=== PATIENT | male | born 1950 | race Two or more races ===

== ENCOUNTER 2018-06-14 18:38 | Emergency (ER) | payer MEDICARE, MEDICAID ==
[~2018-06-14] VITALS: Ht 180.3 cm; Wt 90.3 kg
--- NOTE | 2018-06-14 18:38 | NUR ---
PT BIB FMAILY FOR DYSURIA X 10DAYS, REPORTS HEMATURIA; PT AAOX4, PT ON MONITOR, VSS, NAD NOTED, MD AT BEDSIDE FOR EVAL
--- NOTE | 2018-06-14 18:45 | NUR ---
Note val in EDM - 06/14/18 at 1908 by RHILOMEN PT BIBRA FROM [facility] FOR VOMITTING BLOOD; DRIED BLOOD ON NOSE. PT NON-VERBAL, PT AAOX0, PT OBTUNDED, PT ON MONITOR, VSS, NAD NOTED, AT BEDSIDE FOR EVAL
--- NOTE | 2018-06-14 18:50 | NUR ---
URINE COLLECTED AND SENT TO LAB
[2018-06-14 19:00] VITALS: BP 135/80
[2018-06-14 19:15] LABS: APPEARANCE,URINE Cloudy (CLEAR); BILIRUBIN,URINE Negative (NEGATIVE); BLOOD, URINE Large Ery/uL (NEGATIVE); COLOR,URINE Yellow (YELLOW); KETONES,URINE Negative (NEGATIVE); LEUKOCYTE ESTERASE ,URINE Small (NEGATIVE); NITRITE, URINE Negative (NEGATIVE); PH,URINE 6.5 (5.0-8.0); PROTEIN,URINE 100 mg/dl (NEGATIVE); UGLUCOSE Negative (NEGATIVE)
[2018-06-14 19:26] LABS: BACTERIA,URINE Few /HPF (None Seen); RBC,URINE 21-50 /HPF (0-2); SQUAMOUS EPITHELIAL CELL,UR Few /HPF (None Seen)
== END 2018-06-14 20:12 | disposition home or self-care (01) ==
LOC: ER 18:44
DX: N30.01 Acute cystitis with hematuria (principal); N40.0 Benign prostatic hyperplasia without lower urinary tract symptoms; I10 Essential (primary) hypertension; E11.9 Type 2 diabetes mellitus without complications; F17.200 Nicotine dependence, unspecified, uncomplicated
CPT/HCPCS: 76770; 81001; 87077; 87086; 87186; 99284; A4606; 81000-TC

== ENCOUNTER 2023-08-28 16:19 | Inpatient (IN) | payer MEDICARE, OTHER ==
[~2023-08-28] VITALS: Ht 182.9 cm; Wt 83.0 kg
[2023-08-28 17:21] LABS: BASOPHILS % (AUTO) 0.4 % (0.0-2.0); EOSINOPHILS # (AUTO) 0.1 K/uL (0.0-0.7); EOSINOPHILS % (AUTO) 1.2 % (0.0-6.0); HEMATOCRIT 39 % (39-51); HEMOGLOBIN 13.1 g/dL (13.5-17.5); LYMPHOCYTES # (AUTO) 2.2 K/uL (0.8-4.8); LYMPHOCYTES % (AUTO) 20.3 % (20.0-44.0); MEAN CORPUSCULAR HEMOGLOBIN 28 PG (26.0-33.0); MEAN CORPUSCULAR HGB CONC 33 g/dl (31.0-36.0); MEAN CORPUSCULAR VOLUME 84 fL (80-96); MONOCYTES # (AUTO) 1.2 K/uL (0.1-1.30); NEUTROPHILS # (AUTO) 7.3 K/uL (1.8-8.9); NEUTROPHILS % (AUTO) 67.1 % (43.0-81.0); PLATELET COUNT (AUTO) 265 K/uL (150-450); RED BLOOD CELL COUNT(AUTO) 4.68 MIL/uL (4.5-6.0); RED CELL DISTRIBUTION WIDTH 13.7 % (11.5-15.0); WHITE BLOOD COUNT (AUTO) 10.9 K/uL (4.3-11.0)
[2023-08-28 17:33] LABS: CALCIUM, SERUM 9.2 mg/dL (8.5-10.1); CARBON DIOXIDE 27 mmol/L (21-32); CHLORIDE 100 mmol/L (98-107); CREATININE 0.7 mg/dL (0.6-1.3); GLUCOSE 111 mg/dL (74-106); POTASSIUM 4.5 mmol/L (3.5-5.1); SODIUM SERUM 136 mmol/L (136-145); UREA NITROGEN, BLOOD 13 mg/dL (7-18)
[2023-08-28] MEDS ORDERED: VALS160T29 PO (17:39)
[2023-08-28] MEDS ORDERED: SITA1TAB6 PO (17:39)
[2023-08-28] MEDS ORDERED: TAMS-12 PO (17:39)
[2023-08-28] MEDS ORDERED: ROSU40TA23 PO (17:39)
[2023-08-28] MEDS ORDERED: INSU300I SQ (17:39)
[2023-08-28] MEDS ORDERED: ICOS1CAP PO (17:39)
[2023-08-28 17:43] LABS: ALANINE AMINOTRANSFERASE 24 U/L (12-78); ALBUMIN 3.5 g/dL (3.4-5.0); ALKALINE PHOSPHATASE 75 U/L (46-116); ASPARTATE AMINOTRANSFERASE 21 U/L (15-37); BILIRUBIN,DIRECT 0.2 mg/dL (0.0-0.2); BILIRUBIN,TOTAL 0.4 mg/dL (0.2-1.0); TOTAL PROTEIN, SERUM 7.9 g/dL (6.4-8.2)
[2023-08-28] MEDS: ASPIRIN 325 MG TABLET PO ONE (18:25)
[2023-08-28 18:28] LABS: NT-PRO BNP 82 pg/mL (0-125)
[2023-08-28] MEDS ORDERED: MAG HYDROX/AL HYDROX/SIMETH 30 ML UDC PO PRN (20:00)
[2023-08-28] MEDS ORDERED: DEXTROSE 50%-WATER 50 ML DISP.SYRIN IV PRN (20:00)
[2023-08-28] MEDS ORDERED: ACETAMINOPHEN 325 MG TABLET PO PRN (20:00)
[2023-08-28] MEDS ORDERED: Z GUARD REMEDY 4 OZ OINT TP PRN (20:00)
[2023-08-28] MEDS ORDERED: MAGNESIUM HYDROXIDE 30 ML UDC PO PRN (20:00)
[2023-08-28] MEDS ORDERED: ONDANSETRON HCL/PF 4 MG/2 ML VIAL IVP PRN (20:00)
[2023-08-28] MEDS ORDERED: ZOLPIDEM TARTRATE 5 MG TABLET PO PRN (20:00)
[2023-08-28 21:47] VITALS: BP 150/66; TEMP 98.2; O2SAT 93
[2023-08-28] MEDS: BLOOD SUGAR DIAGNOSTIC 1 EACH STRIP IN SCH (22:00)
[2023-08-29] VITALS (11 sets, daily range): BP systolic 106–157; BP diastolic 61–72; TEMP 97.7–98.5; O2SAT 92–98
[2023-08-29] MEDS: INSULIN REGULAR, HUMAN 100 UNIT/ML 3 ML VIAL SQ PRN (00:03)
[2023-08-29] MEDS ORDERED: PIPERACI/TAZO 3.375GM/D5W 50ML PB IV ONE ×2 (00:17→06:36)
[2023-08-29] MEDS: PIPERACILLIN /TAZOBACTAM 3.375 G in IV D5W 50 ML IV SCH (00:20)
[2023-08-29] MEDS ORDERED: VANCOMYCIN 1 GM /D5W 250 ML PB IV ONE (00:56)
[2023-08-29] MEDS: VANCOMYCIN 1.5 GM in IV D5W 500 ML IV ONE (01:03)
[2023-08-29 04:30] LABS: BASOPHILS # (AUTO) 0.1 K/uL (0.0-0.2); BASOPHILS % (AUTO) 0.7 % (0.0-2.0); EOSINOPHILS # (AUTO) 0.2 K/uL (0.0-0.7); EOSINOPHILS % (AUTO) 1.9 % (0.0-6.0); HEMATOCRIT 37 % (39-51); HEMOGLOBIN 12.1 g/dL (13.5-17.5); LYMPHOCYTES # (AUTO) 2.2 K/uL (0.8-4.8); LYMPHOCYTES % (AUTO) 27.5 % (20.0-44.0); MEAN CORPUSCULAR HEMOGLOBIN 28 PG (26.0-33.0); MEAN CORPUSCULAR HGB CONC 33 g/dl (31.0-36.0); MEAN CORPUSCULAR VOLUME 84 fL (80-96); MONOCYTES # (AUTO) 0.9 K/uL (0.1-1.30); MONOCYTES % (AUTO) 11.6 % (2.0-12.0); NEUTROPHILS # (AUTO) 4.6 K/uL (1.8-8.9); NEUTROPHILS % (AUTO) 58.3 % (43.0-81.0); PLATELET COUNT (AUTO) 244 K/uL (150-450); RED BLOOD CELL COUNT(AUTO) 4.42 MIL/uL (4.5-6.0); RED CELL DISTRIBUTION WIDTH 13.7 % (11.5-15.0); WHITE BLOOD COUNT (AUTO) 7.9 K/uL (4.3-11.0)
[2023-08-29 04:57] LABS: CALCIUM, SERUM 8.6 mg/dL (8.5-10.1); CREATININE 0.7 mg/dL (0.6-1.3); MAGNESIUM 1.9 mg/dL (1.8-2.4); PHOSPHORUS 4.6 mg/dL (2.5-4.9); POTASSIUM 3.6 mmol/L (3.5-5.1)
[2023-08-29] MEDS: LOSARTAN POTASSIUM 50 MG TABLET PO SCH (08:51)
[2023-08-29] MEDS: TAMSULOSIN 0.4 MG CAP.SR.24H PO SCH (08:51)
[2023-08-29] MEDS ORDERED: Medication Not On Formulary EA (Icosapent Ethyl (Vascepa) 2 GM) PO SCH (09:00)
[2023-08-29] MEDS: VALSARTAN 80 MG TABLET PO SCH (09:30)
[2023-08-29] MEDS: ASPIRIN 81 MG TAB.CHEW PO SCH (09:31)
[2023-08-29] MEDS: ALBUTEROL HALF STRENGTH 1.25 MG/3 ML VIAL.NEB NEB SCH (10:48)
[2023-08-29] MEDS: IPRATROPIUM NEB FS 0.5 MG/2.5 ML AMPUL.NEB NEB SCH (10:48)
[2023-08-29] MEDS: VANCOMYCIN HCL 1.25 GM in IV D5W 250 ML IV SCH (12:40)
[2023-08-29] MEDS: ATORVASTATIN 40 MG TABLET PO SCH (21:17)
[2023-08-30] VITALS (9 sets, daily range): BP systolic 111–138; BP diastolic 62–71; TEMP 98.1–98.6; O2SAT 92–98
[2023-08-30 07:50] LABS: CARBON DIOXIDE 26 mmol/L (21-32); CHLORIDE 101 mmol/L (98-107); CREATININE 0.5 mg/dL (0.6-1.3); GLUCOSE 224 mg/dL (74-106); SODIUM SERUM 136 mmol/L (136-145); UREA NITROGEN, BLOOD 9 mg/dL (7-18)
[2023-08-30] MEDS ORDERED: FLUT1DIS INH (13:22)
[2023-08-30] MEDS ORDERED: ASPI-1169 PO (13:22)
[2023-08-30] MEDS ORDERED: SULF1TAB48 PO (13:27)
[2023-08-30] MEDS: VANCOMYCIN 1 GM in IV D5W 250 ML IV SCH (13:49)
[2023-08-30] MEDS ORDERED: METOPROLOL TARTRATE INJ 5 MG/5 ML AMPUL IVP PRN (14:30)
[2023-08-30] MEDS ORDERED: IOHEXOL-350 100 ML VIAL IV ONE ×2 (14:48→15:17)
[2023-08-30] MEDS ORDERED: CT SWABBABLE VALVE TRANS SET 1 EA INFUS.SET MC ONE ×2 (14:48→15:17)
[2023-08-30] MEDS ORDERED: IV NS 0.9% 250 ML IV ONE ×2 (14:48→15:18)
[2023-08-30] MEDS ORDERED: NITROGLYCERIN 0.4 MG/TAB BOTTLE ONE (15:04)
[2023-08-30] MEDS: NITROGLYCERIN 0.4 MG/TAB BOTTLE SL ONE (15:10)
[2023-08-31] MEDS ORDERED: TRIAMCINOLONE ACETONIDE 0.1% CR 15 GM TUBE TP SCH (09:00)
[2023-08-31] MEDS ORDERED: THERAHONEY GEL 1.5 OZ TUBE TP SCH (09:00)
== END 2023-08-30 18:18 | disposition left against medical advice (07) | DRG 202 ==
LOC: ER 16:20 → TELE 21:30
PROVIDERS: ADMIT Nurse Practitioner Acute Care
DX: J20.9 Acute bronchitis, unspecified (principal); J44.0 Chronic obstructive pulmonary disease with (acute) lower respiratory infection; J44.1 Chronic obstructive pulmonary disease with (acute) exacerbation; L03.116 Cellulitis of left lower limb; L97.828 Non-pressure chronic ulcer of other part of left lower leg with other specified severity; E11.622 Type 2 diabetes mellitus with other skin ulcer; R07.9 Chest pain, unspecified; E78.5 Hyperlipidemia, unspecified; L30.9 Dermatitis, unspecified; N40.0 Benign prostatic hyperplasia without lower urinary tract symptoms; Z79.4 Long term (current) use of insulin; Z79.84 Long term (current) use of oral hypoglycemic drugs; E11.42 Type 2 diabetes mellitus with diabetic polyneuropathy; E11.51 Type 2 diabetes mellitus with diabetic peripheral angiopathy without gangrene; F17.210 Nicotine dependence, cigarettes, uncomplicated; I10 Essential (primary) hypertension; Z71.6 Tobacco abuse counseling; I70.248 Atherosclerosis of native arteries of left leg with ulceration of other part of lower leg
CPT/HCPCS: 36415; 70220-TC; 71045-TC; 75574; 80048-TC; 80061-TC; 80076-TC; 80202-TC; 82962-TC; 83735-TC; 83880; 84100-TC; 84484-TC; 85025-TC; 93307-TC; 93926-TC; 94761-TC; 94799-TC; A4223; G0378; J1815; J2543; J3370; J3371; J7040; J7050; J7060; Q9967